=== PATIENT | female | born 1955 | race African-American/Black ===

== ENCOUNTER 2019-06-08 10:22 | Emergency (ER) | payer SELFPAY ==
[~2019-06-08] VITALS: Ht 154.9 cm; Wt 88.5 kg
[2019-06-08] MEDS ORDERED: ULORIC40 MG ORAL ×2 (10:34→11:21)
[2019-06-08] MEDS ORDERED: [UNRECOGNIZED DRUG - REMARK] (10:34)
[2019-06-08 10:38] VITALS: BP 170/102
--- NOTE | 2019-06-08 10:40 | NUR ---
ED Nurse Note: pt walked in to ER from home due to Rt foot Gout pain 03/01. pt has high BP systolic over 170mmHg. pt reported she did not take HTN medication this morning. pt aao x4 and ambulatory. skin clean and intact. Rt foot redness and swelling noted. calm and cooperative. no cardiac or pulmonary distress noted at this moment. pt is in gown and on child monitor.
[2019-06-08] MEDS ORDERED: AMLODIPINE BESY10 MG ORAL ×2 (10:59→11:21)
[2019-06-08] MEDS ORDERED: FUROSEMIDE20 M1 ORAL ×2 (10:59→11:21)
[2019-06-08] MEDS ORDERED: TRIAMTERENE-HC1 EAC6 ORAL ×2 (10:59→11:21)
[2019-06-08] MEDS ORDERED: POTASSIUM600 M1 PO (10:59)
[2019-06-08] MEDS ORDERED: COLCHICINE0.6 M1 PO ×2 (10:59→11:21)
[2019-06-08] MEDS ORDERED: Naproxen 500mg tab ORAL ONE (11:00)
[2019-06-08] MEDS ORDERED: HYDROcodone/Acetamin 5/325 tab ORAL ONE (11:00)
[2019-06-08] MEDS ORDERED: NAPROXEN500 M2 ORAL (11:21)
[2019-06-08] MEDS ORDERED: NORCO 5-325 TA1 EACH ORAL (11:21)
[2019-06-08 11:41] VITALS: BP 172/100
--- NOTE | 2019-06-08 11:42 | NUR ---
ED Nurse Note: Pt cleared by health care Provider for discharge. Patient accompanied by significant other. DC instructions/prescription was given and explained to pt and verbalized understanding of teachings. All medical deviecs such as ID band removed. Pt is AAO x4, ambulatory and left with all personal belongings.
--- NOTE | 2019-06-09 07:37 | Emergency Room Report ---
History of Present Illness General Chief Complaint: Pain Source: Patient Present Illness HPI 64 yo F presents to ED c/o R foot pain. started 3 days ago. h/o gout. states this feels like a gout flareup. pain is throbbing 10/10 nonradiating. states she does not have her medications at this time. is requesting refills of her BP meds and gout meds. no other aggravating factors. denies any other associated symptoms. Allergies: Coded Allergies: No Known Allergies (Unverified , 06/08/19) Patient History Past Medical History: HTN Past Surgical History: none Pertinent Family History: none Social History: Denies: smoking, alcohol use, drug use Now: No Immunizations: UTD Reviewed Nursing Documentation: PMH: Agreed; PSxH: Agreed Nursing Documentation-PMH Past Medical History: No History, Except For Hx Hypertension: Yes Review of Systems All Other Systems: negative except mentioned in HPI Physical Exam Vital Signs Date Time Temp Pulse Resp B/P (MAP) Pulse Ox O2 Delivery O2 Flow Rate FiO2 06/08/19 10:25 98.1 72 17 193/110 (137) 98 Room Air Sp02 EP Interpretation: reviewed, normal General Appearance: no apparent distress, alert, GCS 15, non-toxic Head: normocephalic, atraumatic Eyes: bilateral eye normal inspection, bilateral eye PERRL ENT: hearing grossly normal, normal pharynx, no angioedema, normal voice Neck: full range of motion, supple/symm/no masses Respiratory: chest non-tender, lungs clear, normal breath sounds, speaking full sentences Cardiovascular #1: regular rate, rhythm, no edema Cardiovascular #2: 2+ carotid (R), 2+ carotid (L), 2+ radial (R), 2+ radial (L) , 2+ dorsalis pedis (R), 2+ dorsalis pedis (L) Gastrointestinal: normal bowel sounds, non tender, soft, non-distended, no guarding, no rebound Rectal: deferred Genitourinary: normal inspection, no CVA tenderness Musculoskeletal: back normal, normal range of motion, gait/station normal, swelling - R foot Neurologic: alert, motor strength/tone normal, oriented x3, sensory intact, responsive, speech normal Psychiatric: judgement/insight normal, memory normal, mood/affect normal, no suicidal/homicidal ideation Reflexes: 3+ bicep (R), 3+ bicep (L), 3+ tricep (R), 3+ tricep (L), 3+ knee (R) , 3+ knee (L) Skin: no rash Lymphatic: no adenopathy Medical Decision Making Diagnostic Impression: Primary Impression: Gout Qualified Codes: M10.9 - Gout, unspecified Additional Impression: Encounter for medication refill ER Course Hospital Course 64-year-old F presents ED with R foot pain and swelling. History of gout Differential diagnoses include: Fracture, dislocation, sprain, contusion, bursitis, septic joint Clinical course Patient placed on stretcher. After initial history, physical exam reveals a middle aged female in no acute distress. There is erythema and swelling to the right foot. I do not suspect septic arthritis. Consistent with patient's history of gouty arthritis to the right foot. Given naproxen and [place] in ED with pain improved. Will discharge home with medications. Also provide refills of her BP meds. Safe for discharge for close outpatient follow-up. I will provide referrals Diagnosis - gout , encounter for medication refill Stable and discharged to home with prescriptions. Followup with PMD. Return to ED if symptoms recur or worsen Last Vital Signs Date Time Temp Pulse Resp B/P (MAP) Pulse Ox O2 Delivery O2 Flow Rate FiO2 06/08/19 11:41 97.7 89 17 172/100 98 Room Air Status: improved Disposition: HOME, SELF-CARE Condition: Stable Scripts Hydrocodone Bit/Acetaminophen 5-325* (NORCO 5-325*) 1 Each Tablet 1 TAB ORAL Q6H PRN for For Pain, #10 TAB 0 Refills Prov: Mich Chan MD 06/08/19 Naproxen* (NAPROXEN*) 500 Mg Tablet 500 MG ORAL TWICE A WEEK for 10 Days, #60 TAB 0 Refills Prov: Mich Chan MD 06/08/19 Furosemide* (LASIX*) 20 Mg Tablet 20 MG ORAL DAILY, #30 TAB Prov: Mich Chan MD 06/08/19 Colchicine (Colchicine) 0.6 Mg Capsule 0.6 MG PO DAILY for Gout for 30 Days, #30 CAP Prov: Mich Chan MD 06/08/19 Triamterene/Hydrochlorothiazid (TRIAMTERENE-HCTZ 75-50 MG TAB) 1 Each Tablet 1 TAB ORAL DAILY for HTN for 30 Days, #30 TAB Prov: Mich Chan MD 06/08/19 Amlodipine Besylate* (AMLODIPINE BESYLATE*) 10 Mg Tablet 10 MG ORAL DAILY for HTN for 30 Days, #30 TAB Prov: Mich Chan MD 06/08/19 Febuxostat (ULORIC) 40 Mg Tablet 40 MG ORAL DAILY for GOUT, #30 TAB 0 Refills Prov: Mich Chan MD 06/08/19 Referrals: NOT CHOSEN IPA/,REFERRING (PCP) [facility] Patient Instructions: Gout, [id number] Mich Chan MD Jun 09, 2019 07:37
== END 2019-06-08 11:45 | disposition home or self-care (01) ==
LOC: EMR 11:43
DX: M10.9 Gout, unspecified (principal); I10 Essential (primary) hypertension; Z76.0 Encounter for issue of repeat prescription
CPT/HCPCS: 99283